=== PATIENT | male | born 1950 | race Two or more races ===

== ENCOUNTER 2020-02-05 17:41 | Emergency (ER) | payer OTHER, SELFPAY ==
[~2020-02-05] VITALS: Ht 162.6 cm; Wt 65.0 kg
--- NOTE | 2020-02-05 18:10 | NUR ---
PT AMBULATORY TO ROOM FROM [facility], EKG COMPLETED AND TRIAGE COMPLETED. PT WITH C/O BLOOD PRESSURE HIGH DESPITE HIS BP MEDICATIONS. DR BLEVINS AT BEDSIDE, PT BP 141/99 PT DENIES ANY ASSOCIATED SYMPTOMS. ASSESSMENT REV AND POC DISCUSSED, QUESTIONS ANSWERED. CALL LIGHT W/I REACH.
[2020-02-05] MEDS ORDERED: LISI-170 PO (18:12)
[2020-02-05 18:37] LABS: BASOPHILS # (AUTO) 0.02 x10^3/uL (0-0.1); BASOPHILS % (AUTO) 0 % (0-1); EOSINOPHILS # (AUTO) 0.49 x10^3/uL (0-0.4); EOSINOPHILS % (AUTO) 5 % (1-7); LYMPHOCYTES # (AUTO) 2.16 x10^3/uL (1-3.4); LYMPHOCYTES % (AUTO) 20 % (22-44); MD NO; MEAN CORPUSCULAR HEMOGLOBIN 31.5 pg (27.5-34.5); MEAN CORPUSCULAR HGB CONC 33.5 g/dL (33.2-36.2); MEAN CORPUSCULAR VOLUME 94.1 fL (81-97); MEAN PLATELET VOLUME 9.7 fL (7.4-10.4); MONOCYTES # (AUTO) 0.72 x10^3/uL (0.2-0.8); MONOCYTES % (AUTO) 7 % (2-9); NEUTROPHILS # (AUTO) 7.31 x10^3/uL (1.8-6.8); NEUTROPHILS % (AUTO) 68 % (42-75); PLATELET COUNT 221 x10^3/uL (130-400); RED BLOOD COUNT 5.06 x10^6/uL (4.38-5.82); RED CELL DISTRIBUTION WIDTH 13.4 % (9.4-14.8)
[2020-02-05 18:46] LABS: ANION GAP 3 mmol/L (5-15); CALCIUM 9.2 mg/dL (8.5-10.1); CHLORIDE 109 mmol/L (98-107); CREATININE 0.98 mg/dL (0.7-1.3)
--- NOTE | 2020-02-05 18:53 | NUR ---
REPORT FROM TIM GARZON.
[2020-02-05 19:09] VITALS: BP 131/85
--- NOTE | 2020-02-05 19:15 | NUR ---
DC INSTRUCTIONS GIVEN TO PT.
== END 2020-02-05 19:30 | disposition home or self-care (01) ==
LOC: ED 19:00
DX: I10 Essential (primary) hypertension (principal); R94.31 Abnormal electrocardiogram [ECG] [EKG]
CPT/HCPCS: 36415; 80048; 85025; 93005; 99283